=== PATIENT | female | born 1965 | race Caucasian/White ===

== ENCOUNTER 2019-03-10 10:30 | Outpatient (CLI) | payer BC, SELFPAY ==
[2019-03-10] MEDS: sodium chloride 0.9% 1,000 ML 500 ML IV (11:39)
--- NOTE | 2019-03-15 10:50 | ONC FU_ITS ---
[facility] Patient Note Patient: Verenice Olson Unit #: [id number]: 1965 Dictated By: Susan YoussefDate of Visit: Mar 10, 2019 Onc MED Follow-Up/Prog Note Chief Complaint: Cerebral vasculitis. 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 She has hypertension and hyperlipidemia. She also has psoriasis and she has a history of depression. She first started having symptoms in June 2018 with headache, low-grade fever, weakness and numbness in the left leg, and visual loss in the right eye. Those symptoms improved, but she then began having problems with balance and pain and weakness in both legs. An MRI done at [facility] showed multiple strokes in multiple vascular distributions. Her sedimentation rate was significantly elevated at 74 mm/hour. Transesophageal echocardiogram and carotid Dopplers were negative. MRA of the head on 08/05/2018 showed moderate irregular multifocal segmental narrowing involving the anterior and posterior intracranial circulation, worse in the FUR TAILOR territory and in the second and third order branches of the anterior circulation. The findings were felt to be suspicious for vasculitis. Her spinal fluid showed elevated protein and sheets of lymphocytes, also felt to be consistent with vasculitis. The CSF IgG was elevated at 7.3, normal range 1-3. Her other serology studies were unrevealing. Her repeat sedimentation rate was normal at 13 mm/hour. She underwent open right frontal brain/leptomeningeal biopsy on 08/11/2018. Pathology was nondiagnostic. She had follow-up with Dr. Sharpe on 09/07/2018. At that time she reported symptomatic improvement on empiric steroid therapy with prednisone, though she had developed some weakness in the proximal leg muscles which was felt to be possibly steroid related. Overall, the findings were felt to be consistent with cerebral vasculitis, despite the negative brain biopsy. She was recommended to undergo a course of treatment with intravenous cyclophosphamide. Her other medical illnesses include hypertension, hyperlipidemia, hypersomnia, and depression. She also has mild psoriasis. She has a history of smoking 1 pack of cigarettes daily for 20 years. She quit smoking in June 2018. INTERIM HISTORY: She began cycle 1 of intravenous cyclophosphamide on 09/23/2018. She tolerated it without acute toxicity, and she continued with cycle 2 on 10/21/2018. With cycle 3 the dosage was escalated. She tolerated it well, and she continued with cycle 4 on 12/16/2018 and with cycle 5 on 01/13/2019. Ms Olson is here today for followup. She did see Dr. Sharpe for follow-up since her last treatment here. Was recommended that she pursue 2 additional cycles of cyclophosphamide. She is here today for the first of the 2 additional treatments. She states overall she is feeling pretty good. She has had some intermittent headaches but feels that these are stress related as she is had a lot of stress at home. She does not feel that her same headache she was having with arteritis. Her prednisone has been tapered to 20 mg in the morning and 20 mg in the evening. She has good appetite. She has no fever or night sweats. She has a little soreness along her lower gum on the right side. She has not had any actual mouth sores. She has no shortness of breath, cough, or chest pain. She has had no nausea. She has occasional acid reflux, which she continues to manage with Tums. She denies any new concerns today. Her ECOG is 1. Past Medical History: Depression Hyperlipidemia Hypersomnia Hypertension Psoriasis Past Surgical History: Tubal ligation Open right frontal brain/leptomeningeal biopsy in 2019 Allergies: Sulfa Antibiotics Medications: amLODIPine Besylate 1 Tablet (of 10 mg) Oral daily Atorvastatin Calcium 1 Tablet (of 20 mg) Oral daily buPROPion HCl ER (XL) 1 Tablet (of 150 mg) Tablet SR 24 HR Oral daily C 500 1 Tablet (of 500 mg) Oral daily Calcium Magnesium 750 1 Tablet Oral b.i.d. Docusate Sodium 1 Capsule (of 100 mg) Oral daily PRN Flonase Allergy Relief 1 spray(s) (of 50 mcg/act) Suspension Nasal PRN hydroCHLOROthiazide 1 Tablet (of 25 mg) Oral daily HYDROcodone-Acetaminophen 1 Tablet (of 7.5-325 mg) Oral q 4 hours PRN LORazepam 0.5 - 1 Tablet (of 1 mg) Oral b.i.d. Losartan Potassium 1 Tablet (of 100 mg) Oral daily metFORMIN HCl 1 Tablet (of 500 mg) Oral daily Multivitamin Adults 1 Tablet Oral daily [place] 3 1 Capsule (of 1000 mg) Oral daily Plavix 1 Tablet (of 75 mg) Oral daily predniSONE 1 (20 mg) Tablet Oral b.i.d. Prochlorperazine Maleate 1 Tablet (of 10 mg) Oral PRN Sertraline HCl 1.5 Tablet (of 100 mg) Oral daily Stool Softener 1 (100 mg) Tablet Oral daily PRN traMADol HCl 1 Tablet (of 50 mg) Oral q 6 hours PRN Vitamin D3 1 Capsule (of 2000 Units) Oral daily Family History: Ms. Olson's mother is alive: hypertension. Ms. Torrezs father is alive: heart disease, and skin cancer, and type II diabetes. Her maternal grandfather is : lung cancer. Her paternal grandfather is : colon cancer. Ms. Olson has 2 sisters: 2 alive. Both parents are living, father at age 80 and mother at age 70. He has heart disease and anemia, and he has been treated for skin cancer. Her mother has hypertension. She has 2 sisters. One has PTSD following a traumatic brain injury. The other is in good health. Her maternal grandfather had lung cancer and her paternal grandfather had colon cancer. Social History: Ms. Olson is and she is a licensed practical nurse. Ms. Olson no longer smokes but had smoked 1.0 pack/day for 20 years. She has no history of drinking. Ms. Olson reports the following support systems: lives with spouse, significant other, family, or friends, lives in own house, supportive family/friends willing to assist with needs, and adequate transportation available for expected visits. Her diet consists of regular meals. She indicates her activity level as: regular exercise. She is a nurse. She has a history of smoking 1 pack of cigarettes daily for 20 years. She quit smoking in June 2018. She does not drink alcohol. Review Of Symptoms: Constitutional Denies fevers, chills, night sweats, fatigue is stable. Intermittent headaches, thinks it is stress at home. Allergic/Immunologic No reactions. Eyes Denies significant visual changes. No diplopia. No amaurosis. ENMT Denies changes in hearing, sore throat, mouth sores, difficulty or changes in swallowing ability, and/or sinus drainage. Hematologic/Lymphatic Denies easy bruising or bleeding. The patient denies any tender or palpable lymph nodes. Respiratory Denies dyspnea on exertion, chest pain, cough or hemoptysis. Denies orthopnea. Cardiovascular Denies anginal chest pain, palpitations or orthopnea. Gastrointestinal Denies nausea, vomiting, diarrhea, GI bleeding. She states she does have intermittent constipation. Controlled with stool softeners. Denies change in bowel habits and/or stool color, no heartburn or early satiety. Genitourinary (F) No hematuria, hesitancy, incontinence, vaginal bleeding, discharge or other problems with urination. Musculoskeletal Denies joint pain, swelling or redness. No decreased range of motion. Integumentary Denies chronic rashes, inflammation, ulcerations or skin changes. Neurologic Headache is better- flutter of pain that only lasted a few seconds once today . Denies any worsening of the weakness. Psychiatric Denies insomnia, depression, rajani or mood swings. Vital Signs: Performed on Mar 10, 2019 10:59 Height - 63.00 in Weight - 231.0 lbs BSA - 2.06 sq.m BMI - 40.92 (HIGH) Temperature - 97.1 F (LOW) Pulse - 74 /min Respiration - 18 /min BP - 140/84 mm(hg) O2 Sat - 97 % Pain - 1 Fatigue - 3,1 - No physically strenuous activity, but ambulatory and able to carry out light or sedentary work (e.g. office work, light house work). (ECOG) Physical Examination: Constitutional Alert, oriented, no acute distress. Skin pink, warm and dry. Somewhat cushingoid due to steroids. Head Normocephalic; atraumatic. Eyes Conjunctivae and sclerae are clear and without icterus. Pupils are reactive and equal. Neck Supple without masses or thyromegaly. No jugular venous distension. Hematologic/Lymphatic No petechiae or purpura. No tender or palpable lymph nodes in the cervical or supraclavicular areas. Respiratory Lungs are clear to auscultation without rhonchi or wheezing. Cardiovascular Regular rate and rhythm of heart without murmurs,clicks, gallops or rubs. Back/Spine Non-tender to palpation. Extremities No visible deformities, no cyanosis, clubbing or edema. Musculoskeletal No tenderness or swelling, normal range of motion without obvious weakness. Integumentary No rashes or lesions. Neurologic No sensory or motor deficits, normal cerebellar function, normal gait. Psychiatric Alert and oriented times three. Coherent speech. Verbalizes understanding of our discussions today. Laboratory:Test performed on Mar 08, 2019 09:49 Glucose 118 mg/dL BUN 24 mg/dL Creatinine 1.10 mg/dL Cr Clearance (Est) 96.71 mL/min Sodium 136 mmol/L Potassium 3.8 mmol/L Chloride 102 mmol/L CO2 27 mmol/L Calcium 9.9 mg/dL Protein, Total 6.5 g/dL Albumin 4.2 g/dL Bilirubin, Total 0.300 mg/dL Alkaline Phosphatase 65 IU/L AST (SGOT) 28 IU/L ALT (SGPT) 29 IU/L WBC 15.6 10^9/L RBC 5.06 10^12/L HGB 14.9 g/dL HCT 44.8 % MCV 88.5 fl MCH 29.4 pg MCHC 33.2 g/dL RDW 12.9 % Platelet Count 317 10^9/L MPV 8.3 fL Neutrophils (Gran) 14.2 10^9/L Lymphocytes 1.0 10^9/L Monocytes 0.4 10^9/L Manual Lymphocytes 6.9 % Manual Monocytes 2.2 % Test performed on Feb 09, 2019 08:46 Sed Rate 2 mm/hr Test performed on Feb 08, 2019 10:54 Vitamin D (25-Hydroxy) 47 ng/mL Test performed on Jan 13, 2019 10:58 Est Avg Glucose (eAG) 134 mg/dL Hemoglobin A1C % 6.3 % Test performed on Jan 13, 2019 09:50 T3, Free 2.7 PG/ML T4, Free 1.51 ng/dL TSH 1.04 uIU/mL Anion Gap 19.7 eGFR 52.0 mL/min Globulin 2.3 gm/dL Impression: 1. Patient with cerebral vasculitis, onset of symptoms in June 2018. 2. She has been showing some symptomatic improvement on high-dose steroid therapy. Her other medical illnesses include: 3. Hypertension. 4. Hyperlipidemia. 5. Mild psoriasis. 6. Hypersomnia. 7. Depression. She is undergoing a course of treatment with intravenous cyclophosphamide. She received cycle 1 on 09/23/2018 and cycle 2 on 2018. Both were administered at a reduced dosage. With cycle 3 the dosage was escalated, and she continued to tolerate it well. She has now completed 6 cycles. She does appear to be showing some improvement clinically. Mrs. Olson did see Dr. Sharpe for follow-up on 02/10/2019. At that time Dr. Sharpe did recommend 2 more cycles of the cyclophosphamide. She was also instructed to gradually taper the prednisone by 5 mg a month as long as she is headache free. She is due to see Dr. Sharpe back in May 2019. Plan: 1. proceed with cycle 7/8 of cyclophosphamide at 750 mg/m2 2. Prednisone currently at 20 mg BID. Wean as directed per Dr. Sharpe. 3. Labs from March 08, 2019 were reviewed in detail and discussed with Ms. Olson and a copy was given to her. WBC 15.6, hemoglobin 14.9, platelets were 17,000 potassium 3.8 creatinine 1.1 LFTs are normal. 4. We will plan to see her back in 4 weeks with CBC. 5. Ms. Olson was instructed to contact us in interim should questions or problems arise. Signed By: Susan Youssef-, [facility] Juan White MD <<Signature on File>>
== END 2019-03-10 10:31 | disposition home or self-care (01) ==
LOC: ONCMED 10:39
PROVIDERS: PCP Nurse Practitioner Family; Visit Provider Nurse Practitioner
DX: I67.7 Cerebral arteritis, not elsewhere classified (principal); I10 Essential (primary) hypertension; E78.5 Hyperlipidemia, unspecified; L40.9 Psoriasis, unspecified; F32.9 Major depressive disorder, single episode, unspecified; G47.10 Hypersomnia, unspecified; Z79.899 Other long term (current) drug therapy; Z79.891 Long term (current) use of opiate analgesic; Z87.891 Personal history of nicotine dependence
CPT/HCPCS: 96361; 96367; 96413; 99214; J1100; J2405; J7030; J7040; J9070

== ENCOUNTER → 2019-03-17 13:21 | Outpatient (BNVA) | payer BC, SELFPAY | PROVIDERS: Visit Provider Specialist | DX: I67.7 Cerebral arteritis, not elsewhere classified (principal); M19.90 Unspecified osteoarthritis, unspecified site; Z87.891 Personal history of nicotine dependence | CPT/HCPCS: 99214 ==

== ENCOUNTER 2019-04-07 12:44 | Outpatient (CLI) | payer BC, SELFPAY ==
[2019-04-07] MEDS: sodium chloride 0.9% 1,000 ML 500 ML IV (13:55)
[2019-04-07 14:37] LABS: Alanine Aminotransferase 31 U/L (0-33); Albumin Level 3.9 g/dL (3.5-5.2); Alkaline Phosphatase 66 IU/L (35-105); Anion Gap 16.5 (5-19); Aspartate Amino Transferase 20 U/L (0-32); Blood Urea Nitrogen 20 mg/dL (6-20); Calcium 9.8 mg/dL (8.5-10.5); Carbon Dioxide 28 mmol/L (22-29); Chloride 99 mmol/L (98-107); Globulin 2.6 g/dL (1.3-4.6); Glomerular Filtration Rate 65.2 mL/min (90-130); Glucose 164 mg/dL (65-115); Potassium 3.5 mmol/L (3.5-5.1); Sodium 140 mmol/L (136-145); Total Bilirubin 0.3 mg/dL (0.15-1.2); Total Protein 6.5 g/dL (6.6-8.7)
[2019-04-07 15:38] LABS: Erythrocyte Sedimentation Rate 5 mm/hr (0-15)
== END 2019-04-07 12:45 | disposition home or self-care (01) ==
LOC: ONCMED 12:47
PROVIDERS: Visit Provider Nurse Practitioner
DX: I67.7 Cerebral arteritis, not elsewhere classified (principal); I10 Essential (primary) hypertension; E78.5 Hyperlipidemia, unspecified; L40.9 Psoriasis, unspecified; F32.9 Major depressive disorder, single episode, unspecified; G47.10 Hypersomnia, unspecified; Z79.891 Long term (current) use of opiate analgesic; Z79.02 Long term (current) use of antithrombotics/antiplatelets; Z79.52 Long term (current) use of systemic steroids; Z87.891 Personal history of nicotine dependence
CPT/HCPCS: 80053; 85651; 96361; 96367; 96413; 99214; J1100; J2405; J7030; J7040; J9070

== ENCOUNTER → 2019-05-31 08:46 | Outpatient (BNVA) | payer BC, SELFPAY | PROVIDERS: PCP Nurse Practitioner Family; Visit Provider Specialist | DX: I67.7 Cerebral arteritis, not elsewhere classified (principal); Z87.891 Personal history of nicotine dependence | CPT/HCPCS: 99213 ==

== ENCOUNTER 2019-07-21 07:45 | Outpatient (CLI) | payer BC, SELFPAY ==
--- NOTE | 2019-07-21 08:07 | MR_ITS ---
WS: [id number] MRA ANGIOGRAPHY [place] OF [place] HISTORY: CEREBRAL VASCULITIS COMPARISON: 02/02/2019 TECHNIQUE: 3-D MR angiography is performed of the [place] of [place]. All images are reviewed including source images. Distal vertebral and the basilar artery are normal. Intracranial carotid arteries are also normal wit hout areas of stricture or dilatation. Again noted is absence of the proximal LEFT posterior cerebral artery RIGHT posterior cerebral artery is small caliber but patent. Posterior communicating arteries are both identified and small caliber also. Similar to the prior study. Very mild luminal irregularity involving the M1 segments bilaterally. The oswald of the arteries are m ildly thickened. No focal stenosis or interval change. No aneurysms are identified. Beyond the trifur cation the LEFT middle cerebral arteries are very indistinct and narrowed. This appears progressed si nce the prior study. Very mild wall thickening of the anterior cerebral arteries with no occlusions or progression. MR/MR angio head wo con [id number] IMPRESSION: 1. Mild luminal narrowing with wall irregularity involving the M1 segments brent aterally with new additional changes of vasculitis beyond the trifurcation on t he LEFT. These findings suggest mild progression of vasculitis since 02/02/2019. 2. Nonvisualization of the LEFT proximal posterior cerebral artery is similar to the prior study. 3. Stable mild anterior cerebral artery vasculitis.
--- NOTE | 2019-07-21 08:08 | MR_ITS ---
WS: [id number] MRI BRAIN WITHOUT CONTRAST HISTORY: CEREBRAL VASCULITIS COMPARISON: 08/05/2018 TECHNIQUE: Diffusion imaging, multiplanar T1, T2 and FLAIR imaging obtained. No evidence for acute infarct. Diffusion-weighted images are negative. Since the prior examination th ere is a tract extending to the RIGHT frontal bone to the frontal lobe. There is an area of gliosis a nd increased T2 and FLAIR signal along with hemosiderin along the tract. Patient provided a history o f an interval brain biopsy since the prior study. Prior infarct in the RIGHT cerebellum is similar to the prior study. Prior lacunar infarcts involving the LEFT occipital lobe, posterior medial LEFT parietal lobe and marshall radiata. The amount of T2 an d FLAIR signal hyperintensities has slightly increased since the prior study in a bilateral supratent orial distribution. There is also small amount of increased signal in the LEFT frank. No inferior disp lacement of cerebellar tonsils. Visualized brainstem is otherwise negative. Ventricles and extra-axial spaces are normal. No inferior displacement of cerebellar tonsils. The sella turcica and pituitary gland are unremarkabl e. Visualized dural venous sinuses on this unenhanced study are negative. No increased T2 or FLAIR signa l surrounding the venetie ira of [place]. Paranasal sinuses: Clear. Mastoid air cells: Small amount of fluid in the mastoid air cells bilaterally, LEFT greater than RIGH T. Calvarium and scalp: Intact tract RIGHT frontal bone. MR/MR head wo con* [id number] IMPRESSION: 1. Since the prior study patient has undergone a brain biopsy through the RIGH T frontal bone. Appropriate postsurgical changes, hemosiderin deposition and sc arring. 2. Scattered supratentorial and infratentorial white matter lacunar infarcts a nd signal abnormalities have mildly progressed since the prior study. Probably representing mild progression of patient's vasculitis. 3. No acute infarct or acute hemorrhage.
== END 2019-07-21 07:46 | disposition home or self-care (01) ==
LOC: RADWPI 07:50
PROVIDERS: PCP Nurse Practitioner Family; Visit Provider Specialist
DX: I67.7 Cerebral arteritis, not elsewhere classified (principal); I63.81 Other cerebral infarction due to occlusion or stenosis of small artery
CPT/HCPCS: 70544; 70551

== ENCOUNTER → 2019-07-22 10:58 | Outpatient (BNVA) | payer BC, SELFPAY | PROVIDERS: PCP Nurse Practitioner Family; Visit Provider Specialist | DX: I67.7 Cerebral arteritis, not elsewhere classified (principal); R29.90 Unspecified symptoms and signs involving the nervous system; Z87.891 Personal history of nicotine dependence | CPT/HCPCS: 99215 ==

== ENCOUNTER 2019-07-22 12:55 | Outpatient (CLI) | payer BC, SELFPAY ==
[2019-07-22 13:11] LABS: CSF Mononuclear # 0.002 10^3/uL (50-90); Mononuclear WBC CSF % 100 % (50-90); Polynuclear WBC CSF % 0 % (0-10); Red Blood Cell CSF 0 10^3/uL (0-0); White Blood Cell CSF 2 /uL (0-5)
[2019-07-22 13:22] LABS: Appearance CSF CLEAR (CLEAR); Color CSF COLORLESS (COLORLESS); Pathology Referral Yes
[2019-07-22 13:40] LABS: Glucose CSF 68 mg/dL (40-70)
== END 2019-07-22 12:56 | disposition home or self-care (01) ==
LOC: LAB 12:58
PROVIDERS: PCP Nurse Practitioner Family; Visit Provider Specialist
DX: I67.7 Cerebral arteritis, not elsewhere classified (principal)
CPT/HCPCS: 36415; 80500; 82945; 87070; 87075; 87205; 87327; 89050

== ENCOUNTER 2019-08-25 11:39 | Outpatient (CLI) | payer BC, SELFPAY ==
--- NOTE | 2019-08-25 11:47 | XR_ITS ---
WS: [id number] LUMBAR SPINE FLEXION AND EXTENSION TECHNIQUE: 3 views of the lumbar spine: Lateral neutral, flexion, and extension views. CLINICAL INFORMATION: Low back pain COMPARISON: None. FINDINGS: Exaggeration normal lumbar lordosis. Mild facet arthropathy L5-S1. Disc space narrowing L5-S1. Normal lumbar alignment on the neutral view. No instability on the flexion and extension views. XR/XR lumbar spine f/e only [id number] IMPRESSION: No instability on flexion-extension.
== END 2019-08-25 11:40 | disposition home or self-care (01) ==
LOC: RADWPI 11:44
PROVIDERS: Family Provider Nurse Practitioner Family; PCP Nurse Practitioner Family; Visit Provider Licensed Practical Nurse
DX: M54.5 Low back pain (principal)
CPT/HCPCS: 72120

== ENCOUNTER → 2019-09-14 07:58 | Outpatient (BNVA) | payer BC, SELFPAY | PROVIDERS: Family Provider Nurse Practitioner Family; PCP Nurse Practitioner Family; Visit Provider Specialist | DX: R29.90 Unspecified symptoms and signs involving the nervous system (principal); I67.7 Cerebral arteritis, not elsewhere classified; M46.1 Sacroiliitis, not elsewhere classified | CPT/HCPCS: 99214 ==

== ENCOUNTER → 2019-09-21 09:58 | Outpatient (BNVA) | payer BC, SELFPAY | PROVIDERS: Family Provider Nurse Practitioner Family; PCP Nurse Practitioner Family; Visit Provider Anesthesiology Pain Medicine | DX: M54.42 Lumbago with sciatica, left side (principal); M54.16 Radiculopathy, lumbar region; M47.816 Spondylosis without myelopathy or radiculopathy, lumbar region; M54.9 Dorsalgia, unspecified; Z79.891 Long term (current) use of opiate analgesic | CPT/HCPCS: 99204 ==

== ENCOUNTER → 2019-11-11 13:38 | Outpatient (BNVA) | payer BC, SELFPAY | PROVIDERS: Family Provider Nurse Practitioner Family; PCP Nurse Practitioner Family; Visit Provider Specialist | DX: F32.9 Major depressive disorder, single episode, unspecified (principal); R29.90 Unspecified symptoms and signs involving the nervous system; Z87.891 Personal history of nicotine dependence | CPT/HCPCS: 99205 ==

== ENCOUNTER 2019-12-13 09:06 | Outpatient (CLI) | payer BC, SELFPAY ==
--- NOTE | 2019-12-13 09:30 | MR_ITS ---
WS: [id number] INDICATION: Vasculitis TECHNIQUE: Postgadolinium coronal and axial and sagittal images were obtained. COMPARISON: MRI July 21, 2019 and MRA February 02, 2019. MRI and MRA 6 [phone],[id number] FINDINGS: Prior postoperative changes right frontal guerita hole with previous brain biopsy. Post gadolinium images obtained today. Postoperative changes right frontal lobe. No abnormal gadolini um enhancement. No enhancing lesions. No enhancing foci to indicate subacute ischemia. White matter lesions better visualized on the prior study from July 2019. Chronic lacunar infarct left thalamus is unchanged. Normal optic chiasm and pituitary infundibulum. Normal cavernous sinuses. Nor mal dural venous sinuses. Normal sella. MR/MR head w con [id number] IMPRESSION: 1. Only post gadolinium images obtained today. 2. No abnormal gadolinium enhancement. 3. Dural venous sinuses are patent. 4. Prior postoperative changes right frontal craniotomy with sequelae of prior right frontal biopsy. 5. White matter lesions better visualized on the prior study from July 2019.
--- NOTE | 2019-12-13 09:30 | MR_ITS ---
WS: [id number] MRA HEAD TECHNIQUE: Axial 3-D TOF images obtained with axial images and axial, sagittal, and coronal 2-D refor matted images. CLINICAL INFORMATION: I67.7 Cerebral arteritis, not elsewhere classified COMPARISON: Multiple prior MRAs including July 21, 2019, February 02, 2019, and FINDINGS: Distal vertebral arteries are patent. Basilar artery is patent. Normal flow to the right INVESTOR RELATIONS COORDINATOR territor y. Mild segmental stenosis right INVESTOR RELATIONS COORDINATOR is unchanged. Moderate short segment stenosis at the P1-2 juncti on unchanged. Poor flow involving the left INVESTOR RELATIONS COORDINATOR territory with high-grade stenosis proximally. Poor flow to the left distal INVESTOR RELATIONS COORDINATOR territory concordant with Evidence of prior infarct left parasagittal parietal and occipi bernie lobes in the INVESTOR RELATIONS COORDINATOR territory unchanged. Evidence of laminar necrosis with T1 hyperintensity. Both ICAs are patent at the skull base. Normal cavernous and petrous segments. Patent anterior commun icating artery. Both M1 segments are patent. Mild segmental multifocal stenosis involving the before meals and MCA territories bilaterally more prominent distally involving the second and third order br anches. M1 segments are patent. Improved stenosis involving the right proximal M1 segment. MR/MR angio head wo con [id number] IMPRESSION: 1. No evidence of vasculitis progression compared to July 21, 2019. 2. Improved flow in the right M1 segment compared to July 21, 2019. Both M1 seg ments are patent. Mild stenosis in the proximal right M1 segment. 3. Persistent unchanged poor flow to the left INVESTOR RELATIONS COORDINATOR territory with high-grade pr oximal stenosis. Right INVESTOR RELATIONS COORDINATOR remains patent with mild segmental narrowing worse a t the P1-2 junction. 4. Persistent mild segmental narrowing involving the second and third order br anches TORSTEN and MCA territory. Distal vessels are patent. 5. Patent anterior communicating artery. 6. Distal vertebral arteries are patent. 7. Both ICAs are patent the skull base with normal cavernous and petrous segme nts.
== END 2019-12-13 09:07 | disposition home or self-care (01) ==
PROVIDERS: PCP Nurse Practitioner Family; Visit Provider Specialist
DX: I67.7 Cerebral arteritis, not elsewhere classified (principal)
CPT/HCPCS: 70544; 70552; A9579

== ENCOUNTER → 2020-04-11 14:00 | Outpatient (BNVA) | payer BC, SELFPAY | PROVIDERS: PCP Nurse Practitioner Family; Visit Provider Specialist | DX: I67.7 Cerebral arteritis, not elsewhere classified (principal); M51.17 Intervertebral disc disorders with radiculopathy, lumbosacral region; F32.9 Major depressive disorder, single episode, unspecified; Z87.891 Personal history of nicotine dependence | CPT/HCPCS: 99214 ==

== ENCOUNTER 2021-01-24 15:34 | Outpatient (CLI) | payer OTHER, SELFPAY ==
--- NOTE | 2021-01-24 15:43 | MR_ITS ---
WS: [id number] MRI BRAIN WITH AND WITHOUT CONTRAST HISTORY: D49.6 - Neoplasm of unspecified behavior of brain COMPARISON: 12/13/2019 TECHNIQUE: Multiplanar imaging performed through the brain with MultiHance 17 ml's IV. Postoperative resection site involving the superior RIGHT frontal lobe. There is an area of hemosider in and scar formation. No mass effect. No enhancing masses. There are no acute infarcts are acute areas of hemorrhage. Known bilateral remote cerebellar infarcts . Previously described T2 and FLAIR signal hyperintensities in the periventricular and subcortical wh ite matter with only minimal progression since 07/21/2019. None of these areas enhance. Mild progressi on of the T2 and FLAIR signal hyperintensities within the medial LEFT occipital lobe. Ventricles and extra-axial spaces are normal. Clivus and pituitary gland are normal. Postcontrast images are negative for masses or vascular malformations. None of the white matter lesio ns enhance. There is no enhancement in the basal cisterns. Orbits and globes are negative. Dural venous sinuses are normal. Paranasal sinuses: Well aerated with no significant disease. Mastoid air cells: Normal. Calvarium and scalp: Calvarial defect RIGHT frontal lobe through which the biopsy of the brain was pe rformed. MR/MR head wo/w con [id number] IMPRESSION: 1. Stable postoperative brain biopsy involving the RIGHT frontal lobe. 2. Mild increase in the T2 and FLAIR signal hyperintensities which do not enha nce since 07/21/2019. Thought to be related to vasculitis. 3. No acute infarct or hemorrhage. No enhancing masses.
== END 2021-01-24 15:35 | disposition home or self-care (01) ==
LOC: RADSHAW 15:39
PROVIDERS: PCP Nurse Practitioner Family; Visit Provider Specialist
DX: D49.6 Neoplasm of unspecified behavior of brain (principal)
CPT/HCPCS: 70553; A9579